=== PATIENT | female | born 1980 | race Two or more races ===

== ENCOUNTER 2023-11-30 06:14 | Emergency (ER) | payer SELFPAY ==
[2023-11-30] VITALS (7 sets, daily range): BP systolic 81–120; BP diastolic 63–79; BMI 21.1
--- NOTE | 2023-11-30 06:19 | ED.GENMED ---
History of Present Illness
General
Chief Complaint: Fainting/Passed Out
Time Seen by Provider: 11/30/23 06:18
History of Present Illness
History of Present Illness:
HPI: Patient came in by ambulance due to a syncopal event. She said she awoke normally at 5 AM. The details of the preceding events are somewhat unclear but she states that she collapsed to the ground. She then reported chest pain and shortness
of breath and was 'crawling around'. She called her daughter. She no longer has any chest pain or shortness of breath and currently room air sat is 100%. 5 days ago, she took 1 dose of Mounjaro to help with weight loss.
EXAM:
GENERAL: Well appearing in no distress, hypotension noted with blood pressures of 80s over 50s upon arrival
HEENT: Moist oral mucosa, there is a very irregular lower lip laceration at the wet dry line proximal to the vermilion border measuring 2.5 cm in total length, positive Livia-Hallpike maneuver
CARDIOVASCULAR: No murmurs, normal heart rate, regular rhythm, No chest wall tenderness
PULMONARY: No respiratory distress, breath sounds are clear and equal
ABDOMEN: Soft with no peritoneal signs, no tenderness
NEUROLOGIC: Excellent strength all extremities, no coordination deficits, normal finger-nose testing
PSYCHIATRIC: Appropriate mental status, normal insight and judgement, she appears anxious
EXTREMITIES: Nontender, no edema, moves all extremities equally
SKIN: No rash, no lesions
TIME OF INITIAL ENCOUNTER: 6:40 AM
NUMBER AND COMPLEXITY OF PROBLEMS ADDRESSED AT THE ENCOUNTER
� Chronic conditions affecting care: The patient states she is a vegetarian, otherwise she has no significant past medical history
� Acute Exacerbation and/or Progression of Chronic Illness: This is an acute problem
� Differential Diagnosis includes: Syncope related to hypotension, hypoglycemia, ACS very unlikely, PE extremely unlikely as room air sats are 100% and she has no ongoing shortness of breath and she has nonlabored breathing,
anemia, laceration
AMOUNT AND/OR COMPLEXITY OF DATA TO BE REVIEWED AND ANALYZED
� I performed an independent evaluation of and my interpretation is:
EKG: Sinus 62, normal intervals, no acute ST abnormality
CT:
X-rays:
Laboratory Studies: The patient's white count and hemoglobin are both normal, chemistries and hCG unremarkable
Other:
� Review of other/old records: No old records available for review in [facility]
� Clinical information was obtained by an independent historian: EMS/I reviewed EMS notes which noted blood sugar of 136
� Prescriptions/Medications Considered but not given:
� Further testing considered but not performed:
RISK OF COMPLICATIONS AND/OR MORBIDITY OR MORTALITY OF PATIENT MANAGEMENT
� Social determinants of health affecting care: Lives at home, planning on visiting her daughter in [place] soon
� Discussion with other providers:
� Escalation of care including admission/observation vs risk of discharge considered: I repaired the laceration after cleaning the wound. She was hypotensive upon arrival and was given IV fluids. She has appropriate mental
status. White count/hemoglobin normal along with normal EKG. reassessment at 7:55 AM, after 1 L of fluid, patient is now normotensive with systolic blood pressures of 116. She was able to get up and walk around without any difficulty. hCG
negative. On reassessment, at 8:30 AM the patient reports some ongoing dizziness. She does have a positive Albia-Hallpike maneuver. Suspect positional vertigo as her symptoms of dizziness worsen with changes in head position even after receiving IV
fluid.
Past History
Past History
ED Past Medical History: None
ED Past Surgical History: None
Social History
Tobacco: Non-smoker
Personal:
Living: with family
Employment: Employed
Phy Exam
Physical Exam
Physical Exam:
See HPI
Course
Orders/Labs/Results
Orders:
Orders
11/30/23 06:16
EKG [Electrocardiogram (*1)] Urgent
Reason for Study: Syncope
11/30/23 06:17
EKG- Treatment ONCE
11/30/23 06:18
Test Result ONCE
11/30/23 06:31
0.9% Sodium Chloride 1000 ml [Nss] 1,000 ml IV BOLUS
11/30/23 06:44
Complete Blood Count/With Diff Urgent
11/30/23 07:24
Comprehensive Metabolic Panel Urgent
HCG, Serum Qualitative Screen Urgent
Troponin I Urgent
Abnormal Lab Results
11/30/23 11/30/23
06:44 07:24
MCH 31.2 H pg
(27.0-31.0)
Chloride 109 H mmol/L
(98-107)
11/30/23 06:44
11/30/23 07:24
Vital Signs
Initial and Last Documented VS:
Initial Vital Signs
Temp Pulse Resp BP Pulse Ox
97.5 F 86 20 81/65 94
11/30/23 06:19 11/30/23 06:19 11/30/23 06:19 11/30/23 06:19 11/30/23 06:19
Last Documented Vital Signs
Temp Pulse Resp BP Pulse Ox
97.5 F 107 22 81/65 100
11/30/23 06:19 11/30/23 06:45 11/30/23 06:45 11/30/23 06:23 11/30/23 06:30
Procedures
Laceration Closure
Lower Lip:
Status of Wound: clean
Description of Wound Edges: ragged and flap-well vascularized
Preparation: cleaned with saline
Anesthesia: 1% Lidocaine
Revision/Debridement: routine- no revision
Wound exploration: explored to base- no FB
Type of Closure: single layer closure and interrupted sutures
Number of sutures: 6
Additional information:
Vicryl Rapide
*Critical Care Note
Total Time (30-74mins, 75-104mins- exclusive of procedures): Not Applicable
ED Attending Note
-
Portions of this chart may have been created with voice recognition software.� Occasional wrong word or��sound alike� substitutions may have occurred due to the inherent limitations of voice recognition software.
Discharge Plan
Departure
Patient Disposition: Home (Routine Discharge)
Date of Disposition: 11/30/23
Time of Disposition: 08:26
Patient with high blood pressure during this ER visit?: Yes
Discharge Problem:
Vertigo, Syncope and collapse
Instructions: Vertigo (a type of dizziness), Syncope (Fainting) (DC)
Prescriptions:
No Action
No Current Medications
0
Referrals:
Janice Hickey MD [Family Provider] -
Activity Restrictions/Additional Instructions:
Your symptoms are likely related to positional vertigo. I have given you a prescription for vestibular physical therapy. I recommend that you call [phone]. Return here if worse. Your blood pressure was low initially however after IV fluids
her blood pressure has been normal. Basic blood work including cardiac blood work as well as EKG are normal.
Interventions
Interventions:
*Risk Screen - Suicide Last Done: 11/30/23 06:19
*General Assessment Last Done: 11/30/23 06:19
*Neglect/Abuse Screening Last Done: 11/30/23 06:19
ED- Fall Risk Assessment Last Done: 11/30/23 06:19
*ED COVID-19 Vaccine History Last Done: 11/30/23 06:19
ED- Cardiac Assessment Last Done: 11/30/23 06:19
ED- Neurological Assessment Last Done: 11/30/23 06:19
Discharge Date and Time
Print Language: CUBAN
[2023-11-30] MEDS: NSS 1000 IV (06:45)
[2023-11-30 07:01] LABS: % Basophils 0.8 % (0-2); % Eosinophils 1.7 % (0-6); % Immature Granulocytes 0.2 % (0-0.5); % Monocytes 6.1 % (1.7-9.3); % Neutrophils 68.2 % (42.2-75.2); Absolute Eosinophils 0.1 10^3/uL (0-0.7); Absolute Lymphocytes 1.2 10^3/uL (1.2-3.4); Absolute Monocytes 0.3 10^3/uL (0.1-0.6); Absolute Neutrophils 3.6 10^3/uL (1.4-6.5); Hematocrit 39.1 % (37.0-47.0); Hemoglobin 13.6 g/dL (12.0-16.0); Mean Corp Hgb Conc. 34.8 g/dL (33.0-37.0); Mean Corpuscular Hgb 31.2 pg (27.0-31.0); Mean Corpuscular Volume 89.7 fL (81.0-99.0); Mean Platelet Volume 10.2 fL (7.4-10.4); Nucleated Red Blood Cells % 0 %; Platelet Count 253 10^3/uL (130-400); Red Blood Cell Count 4.36 10^6/uL (4.20-5.40); Red Cell Dist. Width 12.5 % (11.5-14.5); White Blood Cell Count 5.3 10^3/uL (4.8-10.8)
[2023-11-30 07:57] LABS: ALT (SGPT) 20 U/L (0-35); AST (SGOT) 27 U/L (14-36); Albumin 4.1 g/dl (3.5-5.0); Alkaline Phosphatase 68 U/L (38-126); Blood Urea Nitrogen 17 mg/dl (7-17); Calcium 8.5 mg/dl (8.4-10.2); Carbon Dioxide 23 mmol/L (22-30); Chloride 109 mmol/L (98-107); Estimated Creatinine Clearance 90 ml/min; Glucose 77 mg/dl (70-99); Potassium 4.7 mmol/L (3.5-5.1); Sodium 135 mmol/L (135-145); Total Bilirubin 0.7 mg/dl (0.2-1.3); Total Protein 6.8 g/dl (6.3-8.2); eGFR > 60.00
[2023-11-30 08:01] LABS: HCG, Serum Qualitative Screen Negative
[2023-11-30 08:08] LABS: Troponin I < 0.012 ng/ml
== END 2023-11-30 09:36 | disposition home or self-care (01) ==
LOC: EMR 06:14
PROVIDERS: EMERGENCY PHYSICIAN Emergency Medicine; FAMILY PHYSICIAN Internal Medicine
PROC: 0HQ1XZZ Repair Face Skin, External Approach (ICD-10-PCS; 2023-11-30)
DX: R55 Syncope and collapse (principal); R42 Dizziness and giddiness; R07.9 Chest pain, unspecified; R06.02 Shortness of breath; S01.511A Laceration without foreign body of lip, initial encounter; W18.30XA Fall on same level, unspecified, initial encounter; R03.0 Elevated blood-pressure reading, without diagnosis of hypertension
CPT/HCPCS: 99284; 12051; 96360; 80053; 84484; 84703; 85025; 93005